=== PATIENT | male | born 1995 | race Caucasian/White ===

== ENCOUNTER 2021-06-22 07:26 | Emergency (ER) | payer OTHER ==
[2021-06-22] MEDS ORDERED: IBUPROFEN600 MG PO (09:37)
[2021-06-22] MEDS ORDERED: CYCLOBENZAPRINE10 MG PO (09:37)
== END 2021-06-22 10:07 | disposition home or self-care (01) ==
LOC: ER1 07:26
DX: S33.5XXA Sprain of ligaments of lumbar spine, initial encounter (principal); F17.200 Nicotine dependence, unspecified, uncomplicated; V49.40XA Driver injured in collision with unspecified motor vehicles in traffic accident, initial encounter; Y92.410 Unspecified street and highway as the place of occurrence of the external cause
CPT/HCPCS: 72131; 99284